=== PATIENT | male | born 1965 | race Caucasian/White ===

== ENCOUNTER 2024-08-31 10:38 | Day surgery (SDC) | payer OTHER ==
[~2024-08-31] VITALS: Ht 182.9 cm; Wt 99.8 kg
[~2024-08-31 10:38] MED LIST: LEVOTHYROXIN25 MC1 PO
[2024-08-31] MEDS ORDERED: FAMOTIDINE 10MG/ML 2ML SDV IV ONE (11:09)
[2024-08-31] MEDS ORDERED: LACTATED RINGER'S 1,000 ML IV ONE (11:10)
[2024-08-31 12:11] VITALS: BP 145/66
== END 2024-08-31 11:56 | disposition home or self-care (01) | DRG 951 ==
LOC: ENDO 10:38
PROVIDERS: ATTEND Internal Medicine Gastroenterology
DX: Z12.11 Encounter for screening for malignant neoplasm of colon (principal); I25.2 Old myocardial infarction; K21.9 Gastro-esophageal reflux disease without esophagitis; E03.9 Hypothyroidism, unspecified; Z95.5 Presence of coronary angioplasty implant and graft; Z53.09 Procedure and treatment not carried out because of other contraindication